=== PATIENT | male | born 1960 | race Caucasian/White ===

== ENCOUNTER 2016-12-27 15:20 | Emergency (ER) | payer OTHER ==
--- NOTE | 2016-12-27 17:01 | UC ---
Skin Complaint HPI - HPI Summary HPI Summary: believs he has 3 tick on his back that attached his morning - History of Current Complaint Chief Complaint: [facility] Time Seen by Provider: 12/27/16 16:53 Stated Complaint: TICK BITES Hx Obtained From: Patient Onset/Duration: Sudden Onset, Lasting Hours, Still Present Skin Exposure Onset/Duration: Hours Ago Timing: Constant Onset Severity: Mild Current Severity: Mild Pain Intensity: 1 Location: Discrete Character: Redness Aggravating: Nothing Alleviating: Nothing Associated Signs & Symptoms: Positive: Negative Related History: Possible Reaction to: Insect - Allergy/Home Medications Allergies/Adverse Reactions: Allergies Allergy/AdvReac Type Severity Reaction Status Date / Time Chicken Allergy Allergy Nausea Verified 10/01/15 11:30 turkey Allergy Nausea Uncoded 09/28/15 10:19 Review of Systems Constitutional: Negative Skin: Other - believes he has 2-3 ticks on his back Eyes: Negative ENT: Negative Respiratory: Negative Cardiovascular: Negative Gastrointestinal: Negative Genitourinary: Negative Motor: Negative Neurovascular: Negative Musculoskeletal: Negative Neurological: Negative Psychological: Negative All Other Systems Reviewed And Are Negative: Yes PMH/Surg Hx/FS Hx/Imm Hx Previously Healthy: No Endocrine History Of: Denies: Diabetes, Thyroid Disease Cardiovascular History Of: Denies: Cardiac Disorders, Hypertension Respiratory History Of: Denies: COPD, Asthma GI/ History Of: Denies: Ulcer Neurological History Of: Reports: Seizures - DURING SLEEP; LAST ONE SEVERAL MONTHS AGO - Surgical History Surgical History: Yes Surgery Procedure, Year, and Place: 2013 INGUINAL HERNIA [facility] - Family History Known Family History: Positive: None - Social History Occupation: Employed Full-time Lives: With Family Alcohol Use: None Substance Use Type: Marijuana Substance Use Comment - Amount & Last Used: OCC MARIJUANA USE 2-3X/WEEK Smoking Status (MU): Never Smoked Tobacco Physical Exam Triage Information Reviewed: Yes Appearance: Well-Appearing, No Pain Distress, Well-Nourished Vital Signs: Initial Vital Signs Temp 98.2 F 12/27/16 15:42 Pulse 99 12/27/16 15:42 Resp 18 12/27/16 15:42 Pulse Ox 100 12/27/16 15:42 Vital Signs Reviewed: Yes Eye Exam: Normal Eyes: Positive: Conjunctiva Clear ENT Exam: Normal ENT: Positive: Normal ENT inspection, Hearing grossly normal, Pharynx normal, TMs normal. Negative: Nasal congestion, Nasal drainage, Tonsillar swelling, Tonsillar exudate, Trismus, Muffled/hoarse voice Dental Exam: Normal Neck exam: Normal Neck: Positive: Supple, Nontender, No Lymphadenopathy Respiratory Exam: Normal Respiratory: Positive: Chest non-tender, Lungs clear, Normal breath sounds, No respiratory distress, No accessory muscle use Cardiovascular Exam: Normal Cardiovascular: Positive: RRR, No Murmur, Pulses Normal, Brisk Capillary Refill Musculoskeletal Exam: Normal Musculoskeletal: Positive: Strength Intact, ROM Intact, No Edema Neurological Exam: Normal Neurological: Positive: Alert, Muscle Tone Normal Psychological Exam: Normal Psychological: Positive: Normal Response To Family, Age Appropriate Behavior Skin Exam: Normal Skin: Positive: Other - 2 ticks noted on back both removed intact with ease Course/Dx - Course Course Of Treatment: soap and water wash follow with PCP prn - Differential Diagnoses - Skin Complaint Differential Diagnoses: Local Allergic Reaction, Tick Born Illness - Diagnoses Provider Diagnoses: Tick exposure and removal x2 Discharge - Discharge Plan Condition: Stable Disposition: HOME Patient Education Materials: Tick Bite (ED) Referrals: [facility] [[facility]] - If Needed No Primary Care Phys,NOPCP [Primary Care Provider] -
[2016-12-27 17:13] VITALS: BP 136/69
== END 2016-12-27 17:17 | disposition home or self-care (01) ==
LOC: UCEAST 15:20
DX: S20.469A Insect bite (nonvenomous) of unspecified back wall of thorax, initial encounter (principal); W57.XXXA Bitten or stung by nonvenomous insect and other nonvenomous arthropods, initial encounter; Y93.9 Activity, unspecified; Y92.9 Unspecified place or not applicable; F12.90 Cannabis use, unspecified, uncomplicated
CPT/HCPCS: 10120; 99201; G0463